=== PATIENT | female | born 1965 | race Caucasian/White ===

== ENCOUNTER 2020-04-17 10:55 | Inpatient (IN) | payer MEDICAID ==
[~2020-04-17] VITALS: Ht 165.1 cm; Wt 78.0 kg
[~2020-04-17 10:55] MED LIST: ASCO1CAP4 PO
[2020-04-17 11:57] LABS: BASOPHILS % 0.5 % (0.0-2.0); EOSINOPHILS % 1.5 % (0.0-5.0); HEMATOCRIT. 43.9 % (36.0-48.0); HEMOGLOBIN. 15.1 g/dL (12.0-16.0); LYMPHOCYTES % 28.4 % (20.0-50.0); MEAN CORPUSCULAR VOLUME 84.3 fL (81.0-99.0); MEAN PLATELET VOLUME 8.8 fl (7.4-10.4); MONOCYTES % 5.4 % (2.0-8.0); NEUTROPHILS % 64.2 % (40.0-76.0); PLATELET 248 x1000/uL (130-400); RED CELL DISTRIBUTION WIDTH 13.5 % (11.6-14.6)
[2020-04-17 11:59] LABS: CHLORIDE 106 mEq/L (98-107)
[2020-04-17] MEDS ORDERED: ASPIRIN 325MG EC TABLET PO ONE (12:00)
[2020-04-17] MEDS ORDERED: ACETAMINOPHEN 325MG TABLET PO PRN (14:00)
[2020-04-17] MEDS ORDERED: ONDANSETRON HCL 4MG/2ML INJ IV PRN (14:00)
[2020-04-17 16:18] LABS: CLARITY URINE CLEAR (CLEAR); COLOR URINE YELLOW (YELLOW); KETONES URINE NEGATIVE (NEGATIVE); LEUKOCYTE ESTERASE URINE TRACE (NEGATIVE); NITRITE URINE NEGATIVE (NEGATIVE); OCCULT BLOOD URINE NEGATIVE (NEGATIVE); PH URINE 5.5 (4.5-8.0); PROTEIN URINE 1+ (NEGATIVE); SPECIFIC GRAVITY URINE 1.023 (1.005-1.030); UROBILINOGEN URINE 0.2 E.U./dL (0.2-1.0)
[2020-04-17 16:42] LABS: *AMPHETAMINES SCREEN URINE NEGATIVE (NEGATIVE); *BARBITURATES SCREEN URINE NEGATIVE (NEGATIVE); *BENZODIAZEPINES SCREEN URINE NEGATIVE (NEGATIVE); *COCAINE SCREEN URINE NEGATIVE (NEGATIVE); METHADONE URINE SCREEN NEGATIVE (NEGATIVE); OPIATES URINE SCREEN NEGATIVE (NEGATIVE)
[2020-04-17 16:43] LABS: CANNABINOID URINE SCREEN NEGATIVE (NEGATIVE); PHENCYCLIDINE URINE SCREEN NEGATIVE (NEGATIVE)
[2020-04-17 18:46] LABS: CREATINE KINASE 53 IU/L (26-192)
[2020-04-17 21:30] VITALS: BP 119/71
[2020-04-17 22:09] VITALS: BP 119/71
[2020-04-17] MEDS ORDERED: ATORVASTATIN CALCIUM 10MG TABLET PO SCH (22:30)
[2020-04-17] MEDS: METOPROLOL TARTRATE 25MG TABLET PO SCH (22:33)
[2020-04-18 01:07] VITALS: BP 117/73
[2020-04-18 05:06] VITALS: BP 106/71
[2020-04-18 06:23] LABS: BASOPHILS % 0.7 % (0.0-2.0); EOSINOPHILS % 1.4 % (0.0-5.0); HEMATOCRIT. 42.8 % (36.0-48.0); HEMOGLOBIN. 14.5 g/dL (12.0-16.0); LYMPHOCYTES % 35.7 % (20.0-50.0); MEAN CORPUSCULAR HEMOGLOBIN 28.8 pg (28.0-32.0); MEAN CORPUSCULAR VOLUME 84.7 fL (81.0-99.0); MEAN PLATELET VOLUME 8.9 fl (7.4-10.4); MONOCYTES % 5.6 % (2.0-8.0); NEUTROPHILS % 56.6 % (40.0-76.0); PLATELET 259 x1000/uL (130-400); RED BLOOD CELL COUNT 5.05 mill/uL (4.2-5.4); RED CELL DISTRIBUTION WIDTH 13.6 % (11.6-14.6)
[2020-04-18 06:36] LABS: CHLORIDE 107 mEq/L (98-107)
[2020-04-18 08:00] VITALS: BP 123/67
[2020-04-18] MEDS ORDERED: ASPIRIN 81MG TABLET PO SCH (09:00)
[2020-04-18] MEDS: METOPROLOL TARTRATE 25MG TABLET PO SCH (09:42)
[2020-04-18 12:00] VITALS: BP_SYST 105; BP_SYST 114; BP_DIAS 60; BP_DIAS 67
[2020-04-18] MEDS ORDERED: ALPR0.5T MT (12:59)
[2020-04-18 15:13] VITALS: BP 108/67
[2020-04-18 16:00] VITALS: BP 105/68
== END 2020-04-18 17:20 | disposition home or self-care (01) | DRG 203 ==
LOC: ER 10:55 → ENRESERV 19:19 → 5WST 19:24 → EDBEDREQTM 19:26 → EDBEDREQ 19:26
PROVIDERS: ADMIT Internal Medicine; ATTEND Internal Medicine
DX: M94.0 Chondrocostal junction syndrome [Tietze] (principal); E78.5 Hyperlipidemia, unspecified; F41.9 Anxiety disorder, unspecified; R82.71 Bacteriuria; Z79.899 Other long term (current) drug therapy; Z82.49 Family history of ischemic heart disease and other diseases of the circulatory system; Z83.3 Family history of diabetes mellitus
CPT/HCPCS: 36415; 71045; 80048; 80053; 80061; 80305; 81003; 82550; 83880; 84443; 84484; 85025; 85379; 93005; 93306; 99285

== ENCOUNTER 2023-09-02 09:41 | Emergency (ER) | payer MEDICAID ==
[~2023-09-02] VITALS: Ht 165.1 cm; Wt 61.2 kg
[~2023-09-02 09:41] MED LIST changes: +ALPR0.5T MT
[2023-09-02 10:01] VITALS: BP 137/77; PULSE 104; RESP 20; TEMP 97.9; O2SAT 98
[2023-09-02] MEDS ORDERED: METH4TAB MT (10:42)
[2023-09-02] MEDS ORDERED: HYDR-3782 MT (10:42)
== END 2023-09-02 11:03 | disposition home or self-care (01) ==
LOC: ER 09:41
DX: L42 Pityriasis rosea (principal)
CPT/HCPCS: 99283